=== PATIENT | female | born 1950 | race Caucasian/White ===

== ENCOUNTER → 2019-08-12 12:48 | Outpatient (CLI) | payer MEDICARE, SELFPAY ==
--- NOTE | ~2019-08-12 | XR_ITS ---
XR hip BI wo pelvis DATE: 08/12/2019 13:29 INDICATION: Chronic bilateral hip pain TECHNIQUE: Bilateral AP and lateral views of the hips COMPARISON: 05/31/2015 left hip FINDINGS: No fracture or dislocation, avascular necrosis or bone destruction of either hip is evident . Hip joint spaces appear symmetric and well preserved. The pubic symphysis and sacroiliac joints are intact. IMPRESSION: No significant abnormality Reviewed, dictated and finalized at location B. IMPRESSION: No significant abnormality
== END ==
DX: M25.559 Pain in unspecified hip (principal)
CPT/HCPCS: 73521

== ENCOUNTER → 2020-02-22 14:30 | Outpatient (CLI) | payer MEDICARE, SELFPAY ==
--- NOTE | ~2020-02-22 | XR_ITS ---
EXAMINATION: XR sacrum coccyx min 2V DATE: 02/22/2020 15:29 INDICATION: Low back pain. Coccydynia. TECHNIQUE: AP, lateral and angled AP views of the sacrum and coccyx were obtained. COMPARISON: None. FINDINGS: Alignment is normal. Sacral arches appear intact. No fracture. Mild osteoarthritis at the b ilateral sacroiliac joints. Lateral severe lower lumbar facet osteoarthritis. IMPRESSION: 1. 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 Reviewed, dictated and finalized at location A. IMPRESSION: 1. Polyarticular osteoarthritis, severe at the bilateral lower lumbar facet avtar nts and mild at the bilateral sacroiliac joints.
== END ==
PROVIDERS: PCP Internal Medicine; Visit Provider Nurse Practitioner
DX: M54.5 Low back pain (principal); M53.3 Sacrococcygeal disorders, not elsewhere classified
CPT/HCPCS: 72220

== ENCOUNTER → 2020-04-18 15:22 | Outpatient (CLI) | payer MEDICARE, SELFPAY ==
--- NOTE | ~2020-04-18 | XR_ITS ---
EXAMINATION: XR abdomen/kub 1V DATE: 04/18/2020 15:59 INDICATION: Right flank pain TECHNIQUE: A supine view of the abdomen on 2 radiographs was obtained. COMPARISON: 02/01/2016 FINDINGS: Unchanged pattern of phleboliths and atherosclerotic calcifications in the pelvis. No evident urolith iasis. No dilated loops of bowel to suggest obstruction. Cholecystectomy clips in right upper quadran t. Postoperative changes in the epigastric region which may be related to prior hiatal hernia repair. Moderate to severe lower lumbar facet osteoarthritis. IMPRESSION: 1. No evident urolithiasis. Reviewed, dictated and finalized at location H. NT MANAGEMENT SPECIALIST IMPRESSION: 1. No evident urolithiasis.
== END ==
PROVIDERS: Visit Provider Internal Medicine
DX: R10.9 Unspecified abdominal pain (principal); M47.816 Spondylosis without myelopathy or radiculopathy, lumbar region; Z90.49 Acquired absence of other specified parts of digestive tract
CPT/HCPCS: 74018

== ENCOUNTER → 2020-06-24 16:42 | Outpatient (CLI) | payer MEDICARE, SELFPAY ==
--- NOTE | ~2020-06-24 | MM_ITS ---
EXAMINATION: MM screening raheem BI w bi HISTORY: Screening mammogram TECHNIQUE: Craniocaudal and mediolateral oblique 3-D tomosynthesis images were obtained and synthetic 2-D images were generated. CAD analysis was submitted and interpreted. COMPARISON: 05/08/2019, 03/28/2018, 03/14/2017 bilateral digital screening mammogram examinations BREAST PARENCHYMAL COMPOSITION: There are scattered areas of fibroglandular density. FINDINGS: Scattered bilateral benign calcifications. Stable circumscribed low-density approximately 5 mm opacity is noted in the outer mid to lower left b reast (craniocaudal Tomosynthesis image /61; MLO Tomosynthesis image /65) There is no evidence of suspicious mass, calcification, or architectural distortion to suggest malign angel luis in either breast. There has been no suspicious interval change. IMPRESSION: 1. Stable low-density circumscribed 5 mm opacity in the mid to lower outer left breast 2. Routine mammographic screening follow-up is recommended. BI-RADS Category 2: Benign finding(s). Reviewed, dictated and finalized at location A. L FURNITURE REPAIRER
== END ==
PROVIDERS: Visit Provider Internal Medicine
DX: Z12.31 Encounter for screening mammogram for malignant neoplasm of breast (principal)
CPT/HCPCS: 77063; 77067

== ENCOUNTER 2021-08-17 08:50 | Outpatient (CLI) | payer MEDICARE, SELFPAY ==
--- NOTE | ~2021-08-17 | CT_ITS ---
EXAMINATION: CT facial bones wo con EXAM DATE: 08/17/2021 09:33 INDICATION: Injury of face. Right orbital tenderness. Fell 6 months ago. TECHNIQUE: Spiral CT of the facial bones was acquired in the axial plane without contrast. Coronal reformatted images were also reviewed. The dose-length product (DLP) for this examination was 260.81 mGy-cm. The exposure was tailored according to patient size, and iterative reconstruction (ASIR) wa s used as additional dose reduction technique. There is no prior study for comparison. FINDINGS: There are no displaced acute nasal bone fractures. The mandible, sinuses and orbits are in tact. The orbits, globes and extraocular muscles are unremarkable. The visualized sinuses and mas toid air cells are well aerated. Moderate rightward nasal septal deviation. The soft tissue is unr emarkable. IMPRESSION: Rightward nasal septal deviation. Otherwise unremarkable exam. Reviewed, dictated and finalized at location .
--- NOTE | ~2021-08-17 | US_ITS ---
EXAMINATION: US right upper quadrant DATE: 08/17/2021 09:14 INDICATION: Unintentional weight loss, abnormal laboratory exam TECHNIQUE: Multiple grayscale and Doppler ultrasound images of the abdomen were obtained. COMPARISON: 07/04/2018 FINDINGS: The head and body of the pancreas are normal. The pancreatic tail is obscured by bowel gas. The liver is normal with normal echogenicity and echotexture. No surface nodularity. Normal hepatope iva flow in the main portal vein. The gallbladder is surgically absent. The common bile duct measures 11 mm. IMPRESSION: 1. Dilated common bile duct which could be due to post cholecystectomy state. Consider MRCP or ERCP l iver function tests are elevated. Reviewed, dictated and finalized at location B. IMPRESSION: 1. Dilated common bile duct which could be due to post cholecystectomy state. C onsider MRCP or ERCP liver function tests are elevated.
--- NOTE | ~2021-08-17 | XR_ITS ---
EXAMINATION: XR chest 2V DATE: 08/17/2021 09:22 INDICATION: Unintentional weight loss TECHNIQUE: PA and lateral views of the chest are obtained. COMPARISON: 10/07/2018 FINDINGS: There is scarring in the lung apices. The lungs are free of acute opacities. There is no pl eural effusion or pneumothorax. The cardiomediastinal silhouette is normal. There is mild thoracic sp ondylosis. Cholecystectomy clips are noted. IMPRESSION: 1. No acute cardiopulmonary abnormality. Reviewed, dictated and finalized at location B.
== END 2021-08-17 08:51 ==
PROVIDERS: PCP Internal Medicine; Visit Provider Internal Medicine
DX: S09.93XA Unspecified injury of face, initial encounter (principal); R89.9 Unspecified abnormal finding in specimens from other organs, systems and tissues; R63.4 Abnormal weight loss; J34.2 Deviated nasal septum
CPT/HCPCS: 70486; 71046; 76705

== ENCOUNTER → 2021-09-15 16:29 | Outpatient (CLI) | payer MEDICARE, SELFPAY ==
--- NOTE | ~2021-09-15 | XR_ITS ---
EXAMINATION: XR abdomen/kub 1V DATE: 09/15/2021 16:47 INDICATION: Endoscopic capsule which has not been passed over the course of 9 days. TECHNIQUE: A supine view of the abdomen on 2 radiographs was obtained. COMPARISON: 04/18/20 FINDINGS: Small electronic device consistent with provided history of recent capsule endoscopy which projects o ny moderate amount of stool in the distal transverse and proximal descending colon. No dilated loops of gas-filled bowel to suggest obstruction. Cholecystectomy clips in right upper quadrant. Additiona l postoperative changes in the epigastric region. Lung bases are clear. Heart size is normal. IMPRESSION: 1. Electronic device projecting over the colon in the left abdomen consistent with provided history o f a retained capsule endoscope. Reviewed, dictated and finalized at location A. IMPRESSION: 1. Electronic device projecting over the colon in the left abdomen consistent w ith provided history of a retained capsule endoscope.
== END ==
PROVIDERS: PCP Internal Medicine; Visit Provider Nurse Practitioner Family
DX: T18.3XXA Foreign body in small intestine, initial encounter (principal)
CPT/HCPCS: 74018

== ENCOUNTER → 2021-09-21 16:44 | Outpatient (CLI) | payer MEDICARE, SELFPAY ==
--- NOTE | ~2021-09-21 | XR_ITS ---
EXAMINATION: XR abdomen/kub 1V INDICATION: Foreign body of the small bowel TECHNIQUE: Supine views of the abdomen were obtained on 2 radiographs. COMPARISON: 09/15/2021 FINDINGS: The previously described endoscopy capsule is no longer identified. The bowel gas pattern i s normal. There are no dilated loops of bowel. A moderate volume of colonic stool is present. Surgica l changes project at the expected location of the gastroesophageal junction. Surgical clips in the ri [facility] upper quadrant are likely from prior cholecystectomy. IMPRESSION: 1. Endoscopy capsule no longer identified. Reviewed, dictated and finalized at location F.
== END ==
PROVIDERS: PCP Physician Assistant; Visit Provider Physician Assistant
DX: R93.3 Abnormal findings on diagnostic imaging of other parts of digestive tract (principal)
CPT/HCPCS: 74018

== ENCOUNTER → 2021-10-10 13:25 | Outpatient (CLI) | payer MEDICARE, SELFPAY ==
--- NOTE | ~2021-10-10 | MM_ITS ---
EXAMINATION: MM screening raheem BI w bi HISTORY: Screening mammogram, family history of breast cancer in her mother. TECHNIQUE: Craniocaudal and mediolateral oblique 3-D tomosynthesis images were obtained and synthetic 2-D images were generated. CAD analysis was submitted and interpreted. COMPARISON: 06/24/2020, 05/08/2019, 03/28/2018 BREAST PARENCHYMAL COMPOSITION: There are scattered areas of fibroglandular density. FINDINGS: RIGHT BREAST: There is no suspicious mass, calcification, or architectural distortion to suggest anne gnancy. There has been no significant interval change. LEFT BREAST: An asymmetry is present anterior third of the slightly inner breast 2.5 cm from the nipp le on the craniocaudal view. IMPRESSION: 1. Left breast asymmetry. 2. Additional mammographic views and possible breast ultrasound are recommended. BI-RADS Category 0: Incomplete: Needs additional imaging evaluation. Reviewed, dictated and finalized at location A. IMPRESSION: 1. Left breast asymmetry. 2. Additional mammographic views and possible breast ultrasound are recommended . BI-RADS Category 0: Incomplete: Needs additional imaging evaluation.
== END ==
PROVIDERS: PCP Internal Medicine; Visit Provider Internal Medicine
DX: Z12.31 Encounter for screening mammogram for malignant neoplasm of breast (principal); R92.8 Other abnormal and inconclusive findings on diagnostic imaging of breast
CPT/HCPCS: 77063; 77067

== ENCOUNTER → 2021-10-25 08:51 | Outpatient (CLI) | payer MEDICARE, SELFPAY ==
--- NOTE | ~2021-10-25 | MMUS_ITS ---
EXAMINATION: MM diagnostic raheem LT w bi, US breast LT limited HISTORY: Mammographic asymmetry reported in anterior third of slightly inner left breast 2.5 cm from nipple on craniocaudal view of 10/10/2021 TECHNIQUE: Additional 3-D tomosynthesis images of the left breast were performed and synthetic 2-D im ages were generated. CAD analysis was submitted and interpreted. High resolution targeted subareolar left breast ultrasound was performed. COMPARISON: 10/10/2021 bilateral screening mammogram FINDINGS: MAMMOGRAPHIC FINDINGS: No suspicious mass is evident; the area in question compresses out on the compression CC view. ULTRASOUND: Some ducts and a benign calcification are noted in the subareolar area. No suspicious mass or shadowi ng is detected. IMPRESSION: 1. No mammographic evidence of malignancy 2. Routine mammographic screening is recommended BI-RADS Category 2: Benign finding(s). Reviewed, dictated and finalized at location A. IMPRESSION: 1. No mammographic evidence of malignancy 2. Routine mammographic screening is recommended BI-RADS Category 2: Benign finding(s).
== END ==
PROVIDERS: PCP Internal Medicine; Visit Provider Internal Medicine
DX: R92.8 Other abnormal and inconclusive findings on diagnostic imaging of breast (principal)
CPT/HCPCS: 76642; 77061; 77065; G0279

== ENCOUNTER 2022-03-14 08:24 | Outpatient (CLI) | payer MEDICARE, SELFPAY ==
--- NOTE | ~2022-03-14 | CT_ITS ---
EXAMINATION: CT abdomen pelvis w con INDICATION: Nausea, abnormal weight loss TECHNIQUE: Computed tomographic images of the abdomen and pelvis were obtained after the administrati on of 100 cc of Omnipaque 350 intravenous contrast. The dose-length product (DLP) was 338.79 mGy-cm. Automated exposure control and iterative reconstruction technique were employed. COMPARISON: None available FINDINGS: Minimal dependent atelectasis is present in the lung bases. The heart size is normal. There is a small sliding hiatal hernia. Surgical changes are noted at the gastroesophageal junction. The g allbladder is surgically absent. There is mild enlargement of the common bile duct and central intrah epatic ducts which is likely due to post cholecystectomy state. Cysts of the liver measure up to 5 mm in the right hepatic lobe. The spleen, pancreas, and adrenal glands are normal. Cysts of the kidneys measure up to 2.0 cm on the left. There is a 3.5 mm nonobstructing stone of the left kidney. Nonobst ructing stones of the right kidney measure up to 3 mm. There is calcified atherosclerosis of the aort a and many of the other arteries. No pathologically enlarged abdominal or pelvic lymph nodes are iden tified. There is no free intraperitoneal gas or evidence of bowel obstruction. A large volume of colo caridad stool is present. The appendix is normal. There is mild lumbar spondylosis. IMPRESSION: 1. No CT correlate for the patient's symptoms. 2. Bilateral nonobstructing nephrolithiasis. Reviewed, dictated and finalized at location A.
[2022-03-14 08:46] LABS: Estimated Glomerular Filt Rate > 60
== END 2022-03-14 08:25 ==
LOC: MICIMG 08:25
PROVIDERS: PCP Internal Medicine; Visit Provider Internal Medicine Gastroenterology
DX: R11.0 Nausea (principal); R63.4 Abnormal weight loss; N20.0 Calculus of kidney
CPT/HCPCS: 74177; Q9967

== ENCOUNTER 2023-03-04 13:47 | Outpatient (CLI) | payer MEDICARE, SELFPAY ==
--- NOTE | ~2023-03-04 | MR_ITS ---
EXAMINATION: MR brain/brain stem wo/w con DATE: 03/04/2023 14:33 INDICATION: Nausea TECHNIQUE: Magnetic resonance imaging (MRI) of the brain and brainstem was performed without and with 10 mL Multihance intravenous contrast. Sequences included sagittal and axial T1-weighted SE, axial d iffusion-weighted FS SE, axial T2*-weighted GRE, axial T2-weighted FLAIR, and axial T2-weighted FSE. Postcontrast axial and coronal T1-weighted SE was obtained. Apparent diffusion coefficient (ADC) maps were created. COMPARISON: None. FINDINGS: Small focus of encephalomalacia in the right parietal lobe consistent with chronic infarct. There are no areas of restricted diffusion to suggest acute infarction. No intracranial hemorrhage or abnormal intracranial mass lesion. There are scattered areas of nonspecific increased T2-weighted signal inte nsity in the cerebral white matter, predominantly involving the deep, pontine and periventricular whi te matter. There are no intraparenchymal signal abnormalities seen on the other pulse sequences. The ventricles are symmetric and normal in size. There are no abnormal extra-axial fluid collections. [place] w voids are seen in the cerebral arteries on the T2-weighted sequences consistent with their expected patency. Small bilateral mastoid effusions. Visualized orbits and soft tissues are unremarkable. The re are no areas of abnormal enhancement on the post contrast images. IMPRESSION: 1. 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 No acute intracranial process or abnormally enhancing brain lesions. 2. Moderate scattered nonspecific cerebral and pontine white matter T2 hyperintensity which is within normal limits for age and likely sequela of chronic small vessel ischemic disease. Reviewed, dictated and finalized at location A. IMPRESSION: 1. 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 No acute intracranial process or abnormally enhancing brain lesions. 2. Moderate scattered nonspecific cerebral and pontine white matter T2 hyperint ensity which is within normal limits for age and likely sequela of chronic smal l vessel ischemic disease.
== END 2023-03-04 13:48 ==
LOC: MICIMG 13:48
PROVIDERS: PCP Internal Medicine; Visit Provider Internal Medicine
DX: R11.0 Nausea (principal); I63.9 Cerebral infarction, unspecified
CPT/HCPCS: 70553; A9577

== ENCOUNTER → 2023-05-29 13:53 | Outpatient (CLI) | payer MEDICARE, SELFPAY ==
--- NOTE | ~2023-05-29 | MM_ITS ---
EXAMINATION: MM screening raheem BI w bi HISTORY: Screening mammogram, family history of breast cancer in her mother. TECHNIQUE: Craniocaudal and mediolateral oblique 3-D tomosynthesis images were obtained and synthetic 2-D images were generated. CAD analysis was submitted and interpreted. COMPARISON: 10/25/2021, 10/10/2021, 06/24/2020 BREAST PARENCHYMAL COMPOSITION: There are scattered areas of fibroglandular density. FINDINGS: No suspicious mass, calcification, or architectural distortion are identified in either crys ast to suggest malignancy. There has been no suspicious interval change. IMPRESSION: 1. No mammographic evidence of malignancy. 2. Recommend routine screening mammography in one year. BI-RADS Category 1: Negative Reviewed, dictated and finalized at location A. ET OR RUG LAYER HELPER
== END ==
PROVIDERS: PCP Internal Medicine; Visit Provider Internal Medicine
DX: Z12.31 Encounter for screening mammogram for malignant neoplasm of breast (principal)
CPT/HCPCS: 77063; 77067

== ENCOUNTER 2024-03-04 12:37 | Outpatient (CLI) | payer MEDICARE, SELFPAY ==
--- NOTE | ~2024-03-04 | MR_ITS ---
EXAMINATION: MR lumbar spine wo con DATE: 03/04/2024 13:13 INDICATION: Low back pain. Left hip pain. Spinal stenosis. TECHNIQUE: Magnetic resonance imaging (MRI) of the lumbar spine was performed without intravenous con trast. Sequences included sagittal T2-weighted FSE, sagittal T2-weighted FS FSE, sagittal T1-weighted FSE, and axial T2-weighted FSE. COMPARISON: Lumbar spine MRI 10/10/2015 FINDINGS: There is 11 degrees dextroscoliosis of lumbar spine. There is 3 mm anterolisthesis of L1 on L2, 6 mm anterolisthesis of L4 on L5, and 3 mm anterolisthesis of L5 on S1. Vertebral body heights a re normal. There is moderately decreased disc height at T11-T12 and L1-L2, mildly decreased disc heig ht at L3-L4 and L4-L5, and moderately decreased disc height at L5-S1. The distal spinal cord signal i ntensity is normal. The conus medullaris is at L1-L2. The following disc levels are specifically disc ussed: L1-L2: The disc is bulging. There is severe bilateral facet joint osteoarthritis. There is mild bilat eral neural foraminal stenosis. There is mild central canal stenosis. L2-L3: The disc is bulging. There is severe bilateral facet joint osteoarthritis. There is mild bilat eral neural foraminal stenosis. There is mild central canal stenosis. L3-L4: The disc is bulging. There is moderate right and severe left facet joint osteoarthritis. There is mild bilateral neural foraminal stenosis. There is mild central canal stenosis. L4-L5: The disc is bulging and has an annular fissure. There is severe bilateral facet joint osteoart hritis. There is moderate right and mild left neural foraminal stenosis. There is moderate central ca nal stenosis. L5-S1: The disc is bulging and has an annular fissure. There is severe bilateral facet joint osteoart hritis. There is mild bilateral neural foraminal stenosis. There is mild central canal stenosis. IMPRESSION: 1. Moderate lumbar spondylosis, worsened from 10/10/2015. 2. Lumbar dextroscoliosis. Reviewed, dictated and finalized at location A.
== END 2024-03-04 12:38 | disposition home or self-care (01) ==
PROVIDERS: PCP Internal Medicine; Visit Provider Pain Medicine Pain Medicine
DX: M47.816 Spondylosis without myelopathy or radiculopathy, lumbar region (principal); M41.86 Other forms of scoliosis, lumbar region; Z79.891 Long term (current) use of opiate analgesic
CPT/HCPCS: 72148